=== PATIENT | female | born 1975 | race Caucasian/White ===

== ENCOUNTER → 2020-04-20 | Outpatient (CLI) | payer BC ==
[2020-04-20 15:50] VITALS: BP 149/70; PULSE 112; RESP 16; TEMP 98.1; BMI 40.0
--- NOTE | 2020-04-20 16:27 | P.PN ---
Subjective Progress Note Date: 04/20/20 She comes in with weight gain. She has severe anemia. She has been lost to follow-up in 5 years. She had pain in the left lower quadrant pain. Objective - Vital Signs Vital signs: Vital Signs Temp 98.1 F 04/20/20 15:46 Pulse 112 H 04/20/20 15:46 Resp 16 04/20/20 15:46 BP 149/70 04/20/20 15:46 Pulse Ox Intake & Output 04/19/20 04/20/20 04/20/20 18:59 06:59 18:59 Weight 96.162 kg
--- NOTE | 2020-04-20 16:34 | P.HPBAR ---
Bariatric H&P - History & Physicial H&P Date: 04/20/20 History & Physicial: Visit/CC: f/u Patient initial contact: Initial weight: 112.491 kg Initial weight in pounds: 248.00 Height: 5 ft 1 in Initial BMI: 46.8 Last weight: Current weight: 96.162 kg Current weight in pounds: 212.00 Current BMI: 40.0 [place] body weight (based on NIH guidelines): 47.627 kg Excess body weight loss: 25.1% The patient is a 45 year-old F who presents for Bariatric Assessment. She has ulcers and abdominal pain. She currently smokes, 10 cig a day. Recommend nicotine. Recommend EGD. Correction of labs. Hgb is low. EGD and lower scope for anemia. She has family history of diverticulosis. May need lysis of adhesions. Past Medical History Past Medical History: Hyperlipidemia Additional Past Medical History / Comment(s): Back pain, ULCERS, KIDNEY STONE, ARTHRITIS History of Any Multi-Drug Resistant Organisms: None Reported Past Surgical History: Bariatric Surgery, Cholecystectomy, Tonsillectomy Additional Past Surgical History / Comment(s): Lap band in 2008, gastric bypass 10/15/10, EGD Past Anesthesia/Blood Transfusion Reactions: No Reported Reaction Past Psychological History: Depression Additional Psychological History / Comment(s): Years ago Smoking Status: Current every day smoker Past Alcohol Use History: None Reported Additional Past Alcohol Use History / Comment(s): STARTED SMOKING - ,QUIT 2008. 1 CARTON WOULD LAST A MONTH Past Drug Use History: None Reported - Past Family History Father Family Medical History: Dementia, Rheumatoid Arthritis (RA) Mother Family Medical History: Rheumatoid Arthritis (RA) Surgical - Exam Vital Signs Temp Pulse Resp BP 98.1 F 112 H 16 149/70 04/20/20 15:46 04/20/20 15:46 04/20/20 15:46 04/20/20 15:46 Bariatric Checklist Checklist: Plan: Checklist: EGD: 1. Hiatal hernia: 2. H. Pylori: HgbA1c: Vitamin D: Smoking: Former smoker Primary care physician referral: Psychiatry clearance: Cardiology clearance: Sleep study: Diet journal: VTE risk score: VTE risk level: Rehab needs at discharge:
== END | disposition home or self-care (01) ==
LOC: BARWHC3 15:16
PROVIDERS: ATTEND Surgery Plastic and Reconstructive Surgery
DX: E66.01 Morbid (severe) obesity due to excess calories (principal); Z68.41 Body mass index [BMI] 40.0-44.9, adult; F17.210 Nicotine dependence, cigarettes, uncomplicated; E78.5 Hyperlipidemia, unspecified; Z46.51 Encounter for fitting and adjustment of gastric lap band; Z98.84 Bariatric surgery status
CPT/HCPCS: 99211

== ENCOUNTER → 2020-08-29 | Outpatient (CLI) | payer BC ==
[2020-08-29 17:19] LABS: INR 0.9 (<1.2); Prothrombin Time 10.2 sec (9.0-12.0)
[2020-08-29 23:10] LABS: HCT 25.9 % (37.2-46.3); HGB 6.6 g/dL (12.0-15.0); MCH 17.3 pg (27.0-32.0); MCHC 25.5 g/dL (32.0-37.0); Platelet Count 303 X 10*3/uL (140-440); RBC 3.81 X 10*6/uL (4.10-5.20); RDW 20.7 % (11.5-14.5); WBC 9.65 X 10*3/uL (4.50-10.00)
[2020-08-30 02:08] LABS: % Iron Saturation 3.98 (12.00-45.00); African American GFR (CKD) 119.6 (60.0-200.0); Albumin 4.7 g/dL (3.80-4.90); Albumin/Globulin Ratio 1.81 (1.60-3.17); Anion Gap 11.4 mmol/L (4.00-12.00); BUN/Creat Ratio 18.57 Ratio (12.00-20.00); Calcium 9.5 mg/dL (8.7-10.3); Carbon Dioxide 25.6 mmol/L (21.6-31.8); Chol/HDL Ratio 3.39; Globulin 2.6 g/dL (1.6-3.3); LDL Cholesterol,Calculated 92.8 mg/dL (0.0-131.0); Magnesium 1.8 mg/dL (1.5-2.4); Non-African American GFR(CKD) 103.2 (60.0-200.0); Phosphorus 3.5 mg/dL (2.4-5.1); Potassium 3.1 mmol/L (3.5-5.5); Total Bilirubin 0.3 mg/dL (0.3-1.2); Total Protein 7.3 g/dL (6.2-8.2); VLDL Calculation 24.2 mg/dL (5.00-40.00)
[2020-08-30 02:13] LABS: Hemoglobin A1C 4.9 % (4.0-6.0)
[2020-08-30 02:43] LABS: Ferritin 1.6 ng/mL (10.0-291.0); Folate, Serum 11.7 ng/mL
[2020-08-31 07:03] LABS: Vit B1(Thiamine) >160 ug/L (38-122)
[2020-08-31 08:15] LABS: Zinc, Serum 57 ug/dL (60-130)
[2020-09-01 02:34] LABS: Selenium 95 mcg/L (63-160)
== END | disposition home or self-care (01) ==
LOC: LABWHC1 15:56
PROVIDERS: ATTEND Surgery Plastic and Reconstructive Surgery
DX: N19 Unspecified kidney failure (principal); E89.1 Postprocedural hypoinsulinemia; E66.01 Morbid (severe) obesity due to excess calories; E55.9 Vitamin D deficiency, unspecified; D50.8 Other iron deficiency anemias; K90.89 Other intestinal malabsorption; K74.1 Hepatic sclerosis; K50.90 Crohn's disease, unspecified, without complications; I49.1 Atrial premature depolarization; R94.31 Abnormal electrocardiogram [ECG] [EKG]
CPT/HCPCS: 36415; 80053; 80061; 82306; 82525; 82607; 82728; 82746; 83036; 83540; 83550; 83735; 83970; 84100; 84134; 84255; 84425; 84443; 84590; 84630; 85027; 85610; 85730; 93005

== ENCOUNTER → 2020-10-10 | Day surgery (SDC) | payer BC ==
[2020-10-05 16:15] VITALS: BMI 31.1
[~2020-10-10] MED LIST: LACTATED RINGERS 1,000 ML IV ONE; LACTATED RINGERS 1,000 ML IV SCH; PROPOFOL 10 MG/ML 20 ML VIAL IV ONE
--- NOTE | 2020-10-10 03:21 | P.GSHP ---
History of Present Illness H&P Date: 10/10/20 CHIEF COMPLAINT: GERD and colon screen HISTORY OF PRESENT ILLNESS: The patient is a 45-year-old female who presents with gastroesophageal reflux disease and need for colon screen. Upper and lower endoscopy were offered for further evaluation and management. PAST MEDICAL HISTORY: Please see list. PAST SURGICAL HISTORY: Please see list. MEDICATIONS: Please see list. ALLERGIES: Please see list. SOCIAL HISTORY: No illicit drug use FAMILY HISTORY: No reports of Crohn disease or ulcerative colitis. REVIEW OF ORGAN SYSTEMS: CONSTITUTIONAL: No reports of fevers or chills. CARDIO: Denies current chest pain or palpitations. PHYSICAL EXAM: VITAL SIGNS: Stable GENERAL: Well-developed pleasant in no acute distress. HEENT: No scleral icterus. Extraocular movements grossly intact. Moist buccal mucosa. NECK: Supple without lymphadenopathy. CHEST: Unlabored respirations. Equal bilateral excursions. CARDIOVASCULAR: Regular rate and rhythm. Distal 2+ pulses. ABDOMEN: Soft, nondistended. MUSCULOSKELETAL: No clubbing, cyanosis, or edema. ASSESSMENT: 1. Gastroesophageal reflux disease 2. Colon screen. PLAN: 1. Recommend proceeding with an upper and lower endoscopy Past Medical History Past Medical History: Hyperlipidemia Additional Past Medical History / Comment(s): Back pain, ULCERS, KIDNEY STONE, ARTHRITIS History of Any Multi-Drug Resistant Organisms: None Reported Past Surgical History: Bariatric Surgery, Cholecystectomy, Tonsillectomy Additional Past Surgical History / Comment(s): Lap band in 2008, gastric bypass 10/15/10, EGD Past Anesthesia/Blood Transfusion Reactions: No Reported Reaction Smoking Status: Current every day smoker - Past Family History Father Family Medical History: Dementia, Rheumatoid Arthritis (RA) Mother Family Medical History: Rheumatoid Arthritis (RA) Medications and Allergies Home Medications Medication Instructions Recorded Confirmed Type No Known Home Medications 04/20/20 10/05/20 History Allergies Allergy/AdvReac Type Severity Reaction Status Date / Time pregabalin [From Lyrica] Allergy Rash/Hives Verified 10/05/20 16:08
[2020-10-10 08:07] VITALS: TEMP 97.8
--- NOTE | 2020-10-10 08:42 | P.HPADDEND ---
H&P Addendum H&P Addendum Date: 10/10/20 Patient has been lost to follow-up. She reports new worsening epigastric abdominal pain. Additionally she reports new left lower quadrant abdominal pain. No reports of blood in stools. With these findings, will proceed with both upper and lower endoscopy. The patient is elevated risk for complications due to pre-existing gastric bypass
--- NOTE | 2020-10-10 08:48 | P.PCN ---
Date of Procedure: 10/10/20 Description of Procedure: PREOPERATIVE DIAGNOSES: 1. Gastroesophageal reflux disease 2. Epigastric abdominal pain. POSTOPERATIVE DIAGNOSES: 1. Gastroesophageal reflux disease 2. 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 SURGEON: Rosaura Montana MD ANESTHESIA: MAC. INDICATIONS: The patient is a 45-year-old female with prior history of [place]-en-Y gastric bypass. She reports gastroesophageal reflux disease including epigastric abdominal pain. Upper endoscopy was performed for diagnostic and therapeutic management. DESCRIPTION: Patient was brought to the endoscopy suite and laid in the left lateral decubitus position. After adequate IV sedation, a bite block was placed. An Olympus gastroscope was passed along the posterior oropharynx down to the distal esophagus where the squamocolumnar junction was found at approximately 35 cm from the incisors. The anastomosis was found at 42 cm, consistent with approximately 7 cm gastric pouch. The scope was advanced 60 cm from the incisors. No evidence of foreign body was found. Active gastrojejunal ulcerations were encountered. The GI tract was desufflated. The patient tolerated the procedure well. FINDINGS: 1. Chronic chronic gastrojejunal ulceration. 2. No foreign body found along the anastomosis. 3. Squamocolumnar junction was found at approximately 35 cm from the incisors. 4. The anastomosis was found at 42 cm, consistent with approximately 7 cm gastric pouch. PLAN: 1. Recommend upper endoscopy as needed. 2. Omeprazole 40 mg daily and Carafate 1 g twice daily for 4 weeks
[2020-10-10 09:17] VITALS: RESP 16
--- NOTE | 2020-10-10 09:17 | P.PCN ---
Date of Procedure: 10/10/20 Description of Procedure: PREOPERATIVE DIAGNOSIS: Colonoscopy screening. POSTOPERATIVE DIAGNOSIS: Colonoscopy screening. Diverticulosis, scattered. OPERATION: Colonoscopy to the hepatic flexure SURGEON: Rosaura Montana MD. ANESTHESIA: MAC. INDICATIONS: The patient is a 45-year-old female who presents for colonoscopy screening. Benefits and risks were described and informed consent was obtained. DESCRIPTION OF PROCEDURE: The patient had undergone Sutab prep. The patient had been brought into the operating room and laid in the left lateral decubitus position. After adequate intravenous sedation, the rectum was examined with 2% lidocaine jelly. No external hemorrhoids were encountered. The rectal tone was within normal limits. No lesions were palpated in the rectal vault. An Olympus colonoscope was advanced to the sigmoid colon and exchanged for a pediatric colonoscope due to stricture at 40 cm from the anal verge. The pediatric colonoscope was advanced to the hepatic flexure despite abdominal wall pressure and maneuvers. The prep was fair. Scattered diverticulosis was encountered. No colonic polyps were found for the remainder of the colon. No evidence of focal colitis was found. Retroflexion of the scope demonstrated grade 1 internal hemorrhoids without active bleeding or inflammation. The colon was desufflated. The patient had tolerated the procedure well. Withdrawal time was over 6 minutes. FINDINGS: Aronchick preparation quality scale 3 (1-5) Internal hemorrhoids, grade 1 No external prolapsed hemorrhoids. No arteriovenous malformations. No adenomatous polyps. No focal colitis. Colonoscopy to hepatic flexure from redundant sigmoid colon and redundant transverse colon. RECOMMENDATIONS: 1. Recommend completion barium enema 2. Recommend at least 2 days of colonoscopy prep 3. Repeat colonoscopy years, 2025 Plan - Discharge Summary Discharge Rx Participant: No New Discharge Prescriptions: No Action No Known Home Medications Discharge Medication List No Known Home Medications 04/20/20 [History] Follow up Appointment(s)/Referral(s): [place], [place] [NON-STAFF] - 10/12/20 Patient Instructions/Handouts: Diverticulosis Diet (GEN), Diverticulosis (DC), Peptic Ulcer (GEN) Activity/Diet/Wound Care/Special Instructions: Repeat colonoscopy in 5 years2025 Discharge Disposition: HOME SELF-CARE
[2020-10-10 09:34] VITALS: BP 125/77; PULSE 66
== END | disposition home or self-care (01) ==
LOC: ORWHC2ENDO 07:43
PROVIDERS: ATTEND Surgery Plastic and Reconstructive Surgery
DX: Z12.11 Encounter for screening for malignant neoplasm of colon (principal); K28.7 Chronic gastrojejunal ulcer without hemorrhage or perforation; K21.9 Gastro-esophageal reflux disease without esophagitis; E78.5 Hyperlipidemia, unspecified; F17.200 Nicotine dependence, unspecified, uncomplicated; K57.90 Diverticulosis of intestine, part unspecified, without perforation or abscess without bleeding; M19.90 Unspecified osteoarthritis, unspecified site; Z90.49 Acquired absence of other specified parts of digestive tract; Z98.84 Bariatric surgery status; F03.90 Unspecified dementia, unspecified severity, without behavioral disturbance, psychotic disturbance, mood disturbance, and anxiety
CPT/HCPCS: 43235; 81025; G0121; J2704

== ENCOUNTER 2023-03-13 08:25 | Inpatient (IN) | payer BC, OTHER ==
[2023-03-13 09:26] LABS: Partial Thromboplastin Time 24.1 sec (22.0-30.0); Prothrombin Time 11.2 sec (10.0-12.5)
[2023-03-13 09:35] LABS: Anisocytosis Marked; Basophils % (A) 1 %; Eosinophils # (A) 0.1 k/uL (0-0.7); Eosinophils % (A) 2 %; Hypochromasia Marked; Lymphocytes # (A) 1.4 k/uL (1.0-4.8); Lymphocytes % (A) 32 %; MCH 20.3 pg (25.0-35.0); MCHC 26.6 g/dL (31.0-37.0); MCV 76.1 fL (80.0-100.0); Mean Platelet Volume 7.5; Microcytosis Marked; Monocytes # (A) 0.2 k/uL (0-1.0); Monocytes % (A) 4 %; Neutrophils # (A) 2.6 k/uL (1.3-7.7); Neutrophils % (A) 60 %; Platelet Count 351 k/uL (150-450); Poikilocytosis Slight; RBC 1.92 m/uL (3.80-5.40); RDW 24.1 % (11.5-15.5); WBC 4.3 k/uL (3.8-10.6)
[2023-03-13 09:38] LABS: HCT 14.6 % (34.0-46.0); HGB 3.9 gm/dL (11.4-16.0)
[2023-03-13 09:51] LABS: ALT 14 U/L (4-34); AST 24 U/L (14-36); African American GFR (CKD) >90 (>60 ml/min/1.73 sqM); Albumin 4.1 g/dL (3.5-5.0); Alkaline Phosphatase 97 U/L (38-126); Anion Gap 13 mmol/L; Blood Urea Nitrogen 11 mg/dL (7-17); Carbon Dioxide 19 mmol/L (22-30); Chloride 107 mmol/L (98-107); Glucose 95 mg/dL (74-99); Magnesium 2.2 mg/dL (1.6-2.3); Non-African American GFR(CKD) >90 (>60 ml/min/1.73 sqM); Potassium 4.1 mmol/L (3.5-5.1); Sodium 139 mmol/L (137-145); Total Bilirubin 0.4 mg/dL (0.2-1.3); Total Protein 7.4 g/dL (6.3-8.2)
--- NOTE | 2023-03-13 09:53 | ED ---
General Adult HPI - General Chief complaint: Recheck/Abnormal Lab/Rx Stated complaint: ABN LABS Time Seen by Provider: 03/13/23 09:02 Source: patient, RN notes reviewed Mode of arrival: ambulatory Limitations: no limitations - History of Present Illness Initial comments: 48-year-old female presents emergency department chief complaint of anemia. Patient states that she was going for routine blood work for her arthritis from her PCP who called and told her hemoglobin was in the 3.2 range. Patient states that she has felt short of breath, tired feeling she denies any melanotic stools denies any abdominal pain. Patient states she does not do much cycle. She has had some abnormal bleeding from reports of patient and Dr. Okeefe. - Related Data Home Medications Medication Instructions Recorded Confirmed Bumetanide [Bumex] 1 mg PO DAILY 03/13/23 03/13/23 HYDROcodone/APAP 7.5-325MG [[place] 1 tab PO Q6HR PRN 03/13/23 03/13/23 7.5-325] Meloxicam [Mobic] 15 mg PO DAILY 03/13/23 03/13/23 Potassium Chloride ER [K-Dur 10] 10 meq PO DAILY 03/13/23 03/13/23 Previous Rx's Medication Instructions Recorded Omeprazole [PriLOSEC] 40 mg PO DAILY #30 cap 10/10/20 Allergies Allergy/AdvReac Type Severity Reaction Status Date / Time No Known Allergies Allergy Verified 03/13/23 11:04 Review of Systems ROS Statement: Those systems with pertinent positive or pertinent negative responses have been documented in the HPI. ROS Other: All systems not noted in ROS Statement are negative. Past Medical History Past Medical History: Hyperlipidemia Additional Past Medical History / Comment(s): Back pain, ULCERS, KIDNEY STONE, ARTHRITIS History of Any Multi-Drug Resistant Organisms: None Reported Past Surgical History: Bariatric Surgery, Cholecystectomy, Tonsillectomy Additional Past Surgical History / Comment(s): Lap band in 2008, gastric bypass 10/15/10, EGD Past Anesthesia/Blood Transfusion Reactions: No Reported Reaction Past Psychological History: Depression Smoking Status: Current every day smoker Past Alcohol Use History: None Reported Past Drug Use History: None Reported - Past Family History Father Family Medical History: Dementia, Rheumatoid Arthritis (RA) Mother Family Medical History: Rheumatoid Arthritis (RA) General Exam Limitations: no limitations General appearance: alert, in no apparent distress, other (pale) Head exam: Present: atraumatic, normocephalic, normal inspection Eye exam: Present: PERRL, EOMI. Absent: normal appearance (pale), scleral icterus, conjunctival injection, periorbital swelling ENT exam: Present: normal exam, mucous membranes moist Neck exam: Present: normal inspection. Absent: tenderness, meningismus, lymphadenopathy Respiratory exam: Present: normal lung sounds bilaterally. Absent: respiratory distress, wheezes, rales, rhonchi, stridor Cardiovascular Exam: Present: regular rate, normal rhythm, normal heart sounds. Absent: systolic murmur, diastolic murmur, rubs, gallop, clicks GI/Abdominal exam: Present: soft, normal bowel sounds. Absent: distended, tenderness, guarding, rebound, rigid Skin exam: Present: warm, dry, intact. Absent: normal color (pale), rash Course Vital Signs 03/13/23 08:37 Temperature 97.9 F Pulse Rate 97 Respiratory 16 Rate Blood Pressure 152/68 O2 Sat by Pulse 100 Oximetry Procedures - [place] Protocol (Time Out) Nurse: MARKO GALICIA Medical Decision Making - Medical Decision Making Was pt. sent in by a medical professional or institution (, PA, EVENT MARKETING ASSISTANT, urgent care, hospital, or fpc...) When possible be specific @ -PCP Did you speak to anyone other than the patient for history (EMS, parent, family, police, friend...)? What history was obtained from this source @ -No Did you review nursing and triage notes (agree or disagree)? Why? @ -I reviewed and agree with nursing and triage notes Were old charts reviewed (outside hosp., previous admission, EMS record, old EKG, old radiological studies, urgent care reports/EKG's, fpc records)? Report findings @ -No old charts were reviewed Differential Diagnosis (chest pain, altered mental status, abdominal pain women, abdominal pain men, vaginal bleeding, weakness, fever, dyspnea, syncope, headache, dizziness, GI bleed, back pain, seizure, CVA, palpatations, mental health, musculoskeletal)? @ -[Anemia, dysfunctional vaginal bleeding, peptic ulcer disease, gastrointestinal bleeding EKG interpreted by me (3pts min.). @ -None X-rays interpreted by me (1pt min.). @ -None done CT interpreted by me (1pt min.). @ -None done U/S interpreted by me (1pt. min.). @ -Ultrasound is pending upon admission What testing was considered but not performed or refused? (CT, X-rays, U/S, labs)? Why? @ -None What meds were considered but not given or refused? Why? @ -None Did you discuss the management of the patient with other professionals (professionals i.e. , PA, EVENT MARKETING ASSISTANT, lab, RT, psych nurse, director social welfare, welfare eligibility interviewer, teacher, ground nuclear weapons assembly officer, manager rn case)? Give summary @ -Dr. Okeefe for admission with recommendations to perform ultrasound and consult VICE CHAIRMAN. Was smoking cessation discussed for >3mins.? @ -No Was critical care preformed (if so, how long)? @ -35 mins Were there social determinants of health that impacted care today? How? (Homelessness, low income, unemployed, alcoholism, drug addiction, transportation, low edu. Level, literacy, decrease access to med. care, half-way, rehab)? @ -No Was there de-escalation of care discussed even if they declined (Discuss DNR or withdrawal of care, Hospice)? DNR status @ -No What co-morbidities impacted this encounter? (DM, HTN, Smoking, COPD, CAD, Can cer, CVA, ARF, Chemo, Hep., AIDS, mental health diagnosis, sleep apnea, morbid obesity)? @ -None Was patient admitted / discharged? Hospital course, mention meds given and route, prescriptions, significant lab abnormalities, going to OR and other pertinent info. @ -Admitted patient is found to have anemia with hemoglobin 3.9. Patient was ordered 2 units of blood. Patient will be admitted will have ultrasound ordered, consult to VICE CHAIRMAN. She denies any rectal bleeding. Patient be closely monitored Undiagnosed new problem with uncertain prognosis? @ -No Drug Therapy requiring intensive monitoring for toxicity (Heparin, Nitro, Insulin, Cardizem)? @ -No Were any procedures done? @ -No Diagnosis/symptom? @ -[Anemia Acute, or Chronic, or Acute on Chronic? @ -Acute Uncomplicated (without systemic symptoms) or Complicated (systemic symptoms)? @ -Uncomplicated Side effects of treatment? @ -[No Exacerbation, Progression, or Severe Exacerbation? @ -No Poses a threat to life or bodily function? How? (Chest pain, [place], VA, pneumonia, PE, COPD, DKA, ARF, appy, cholecystitis, CVA, Diverticulitis, Homicidal, Suicidal, threat to staff... and all critical care pts) @ -[Yes anemic - Lab Data Result diagrams: 03/13/23 08:43 03/13/23 08:43 Lab Results 03/13/23 03/13/23 03/13/23 Range/Units 08:43 08:43 08:57 WBC 4.3 (3.8-10.6) k/uL RBC 1.92 L (3.80-5.40) m/uL Hgb 3.9 L* (11.4-16.0) gm/dL Hct 14.6 L* (34.0-46.0) % MCV 76.1 L (80.0-100.0) fL MCH 20.3 L (25.0-35.0) pg MCHC 26.6 L (31.0-37.0) g/dL RDW 24.1 H (11.5-15.5) % Plt Count 351 (150-450) k/uL MPV 7.5 Neutrophils % 60 % Lymphocytes % 32 % Monocytes % 4 % Eosinophils % 2 % Basophils % 1 % Neutrophils # 2.6 (1.3-7.7) k/uL Lymphocytes # 1.4 (1.0-4.8) k/uL Monocytes # 0.2 (0-1.0) k/uL Eosinophils # 0.1 (0-0.7) k/uL Basophils # 0.0 (0-0.2) k/uL Hypochromasia Marked Poikilocytosis Slight Anisocytosis Marked Microcytosis Marked PT 11.2 (10.0-12.5) sec INR 1.0 (<1.2) APTT 24.1 (22.0-30.0) sec Sodium 139 (137-145) mmol/L Potassium 4.1 (3.5-5.1) mmol/L Chloride 107 (98-107) mmol/L Carbon Dioxide 19 L (22-30) mmol/L Anion Gap 13 mmol/L BUN 11 (7-17) mg/dL Creatinine 0.60 (0.52-1.04) mg/dL Est GFR (CKD-EPI)AfAm >90 (>60 ml/min/1.73 sqM) Est GFR (CKD-EPI)NonAf >90 (>60 ml/min/1.73 sqM) Glucose 95 (74-99) mg/dL Calcium 9.0 (8.4-10.2) mg/dL Magnesium 2.2 (1.6-2.3) mg/dL Total Bilirubin 0.4 (0.2-1.3) mg/dL AST 24 (14-36) U/L ALT 14 (4-34) U/L Alkaline Phosphatase 97 (38-126) U/L Total Protein 7.4 (6.3-8.2) g/dL Albumin 4.1 (3.5-5.0) g/dL Blood Type Blood Type Recheck Bld Type Recheck Status Antibody Screen Crossmatch Spec Expiration Date 03/13/23 Range/Units 08:57 WBC (3.8-10.6) k/uL RBC (3.80-5.40) m/uL Hgb (11.4-16.0) gm/dL Hct (34.0-46.0) % MCV (80.0-100.0) fL MCH (25.0-35.0) pg MCHC (31.0-37.0) g/dL RDW (11.5-15.5) % Plt Count (150-450) k/uL MPV Neutrophils % % Lymphocytes % % Monocytes % % Eosinophils % % Basophils % % Neutrophils # (1.3-7.7) k/uL Lymphocytes # (1.0-4.8) k/uL Monocytes # (0-1.0) k/uL Eosinophils # (0-0.7) k/uL Basophils # (0-0.2) k/uL Hypochromasia Poikilocytosis Anisocytosis Microcytosis PT (10.0-12.5) sec INR (<1.2) APTT (22.0-30.0) sec Sodium (137-145) mmol/L Potassium (3.5-5.1) mmol/L Chloride (98-107) mmol/L Carbon Dioxide (22-30) mmol/L Anion Gap mmol/L BUN (7-17) mg/dL Creatinine (0.52-1.04) mg/dL Est GFR (CKD-EPI)AfAm (>60 ml/min/1.73 sqM) Est GFR (CKD-EPI)NonAf (>60 ml/min/1.73 sqM) Glucose (74-99) mg/dL Calcium (8.4-10.2) mg/dL Magnesium (1.6-2.3) mg/dL Total Bilirubin (0.2-1.3) mg/dL AST (14-36) U/L ALT (4-34) U/L Alkaline Phosphatase (38-126) U/L Total Protein (6.3-8.2) g/dL Albumin (3.5-5.0) g/dL Blood Type A Positive Blood Type Recheck A Pos Bld Type Recheck Status No Antibody Screen NEGATIVE Crossmatch See Detail Spec Expiration Date 03/16/20232356 Disposition Clinical Impression: Anemia Disposition: ADMITTED IP TO THIS [facility] Condition: Fair Referrals: Ziggy Okeefe MD [Primary Care Provider] - 1-2 days Time of Disposition: 10:28
[2023-03-13] MEDS ORDERED: NALOXONE 0.4 MG/ML 1 ML VIAL IV PRN (10:29)
[2023-03-13] MEDS ORDERED: ACETAMINOPHEN TAB 325 MG TAB PO PRN (10:29)
[2023-03-13] MEDS: PANTOPRAZOLE 40 MG/10 ML VIAL IV SCH (11:34)
--- NOTE | 2023-03-13 11:51 | US ---
EXAMINATION TYPE: US transvaginal DATE OF EXAM: 03/13/2023 COMPARISON: CT 2014 CLINICAL INDICATION: Female, 48 years old with history of bleeding, anemia; Hgb 3.9 TECHNIQUE: Transvaginal (TV. Transvaginal sonographic images were medically necessary to better ass ess the following anatomy: Date of LMP: 03/02/23 EXAM MEASUREMENTS: Uterus: 8.4 x 6.4 x 6.3 cm Endometrial Stripe: 0.63 cm Left Ovary: 2.2 x 1.4 x 2.0 cm 1. Uterus: Anteverted but retroflexed; Multiple fibroids - 1). 4.0 x 4.1 x 3.4 cm (right uterus) 2). 2.2 x 2.1 x 2.0 cm (Fundus) 3). 2.4 x 2.4 x 2.0 cm (Left) 4). 2.2 x 1.5 x 2.2 cm (Left) 2. Endometrium: Somewhat distorted contour due to fibroids 3. Right Ovary: Not visualized due to overlying bowel gas 4. Left Ovary: Wnl Spectral, color and waveform doppler imaging shows good arterial and venous flow within the left ov glen; there is no evidence of torsion. 5. Bilateral Adnexa: wnl 6. Posterior cul-de-sac: Small amount of cul-de-sac free fluid may be physiologic. IMPRESSION: 1. Bulky fibroid uterus. Fibroids measure up to 4.1 cm. The endometrial stripe has a distorted contou r likely from mass effect from the multiple fibroids. Submucosal components of the fibroids are diffi cult to exclude. If further evaluation with fibroid mapping is desired, female pelvic MRI can be cons idered. 2. Unable to visualize the right ovary. 3. Small amount of cul-de-sac free fluid likely physiologic. 4. Endometrial stripe thickness at 6.3 mm. This would be mildly thickened for a postmenopausal female with bleeding and further clinical correlation is recommended.
[2023-03-13] MEDS: HYDROcodone/APAP 7.5-325MG 1 EACH TAB PO PRN (21:18)
[2023-03-14] MEDS: HYDROcodone/APAP 7.5-325MG 1 EACH TAB PO PRN ×3 (05:06→20:34)
[2023-03-14] MEDS: MELOXICAM 7.5 MG TAB PO SCH (07:22)
[2023-03-14] MEDS: POTASSIUM CHLORIDE ER 10 MEQ TAB.ER.PRT PO SCH (08:46)
[2023-03-14] MEDS: BUMETANIDE 1 MG TAB PO SCH (08:47)
[2023-03-14] MEDS: PANTOPRAZOLE 40 MG/10 ML VIAL IV SCH (08:47)
--- NOTE | 2023-03-14 08:47 | P.HPIM ---
History of Present Illness H&P Date: 03/14/23 Chief Complaint: anemia This is a 48-year-old female who was sent to the emergency room from our office after a critical hemoglobin of 3.3. Patient does report some fatigue and shortness of breath but denies any abdominal pain or blood in her stool. She does report a history of some abnormal vaginal bleeding. Transvaginal ultrasound showed a bulky fibroid uterus with fibroids measuring up to 4.1 cm. Gynecology has been consulted. She is seen this morning walking about room. She did receive packed red blood cells yesterday and repeat hemoglobin for this morning is pending at time of dictation. Patient does have a history of gastric bypass. Review of Systems Constitutional: Reports fatigue, Denies chills, Denies fever Cardiovascular: Reports dyspnea on exertion, Denies chest pain Respiratory: Reports dyspnea, Denies cough Gastrointestinal: Reports abdominal pain, Denies nausea, Denies vomiting Genitourinary: Reports menorrhagia Musculoskeletal: Denies arm numbness/tingling, Denies leg numbness/tingling Neurological: Reports weakness, Denies headaches Past Medical History Past Medical History: Hyperlipidemia Additional Past Medical History / Comment(s): Back pain, ULCERS, KIDNEY STONE, ARTHRITIS History of Any Multi-Drug Resistant Organisms: None Reported Past Surgical History: Bariatric Surgery, Cholecystectomy, Tonsillectomy Additional Past Surgical History / Comment(s): Lap band in 2008, gastric bypass 10/15/10, EGD Past Anesthesia/Blood Transfusion Reactions: No Reported Reaction Past Psychological History: Depression Additional Psychological History / Comment(s): Years ago Smoking Status: Current some day smoker Past Alcohol Use History: None Reported Additional Past Alcohol Use History / Comment(s): STARTED SMOKING -15 ,QUIT 2008. 1 CARTON WOULD LAST A MONTH Past Drug Use History: None Reported - Past Family History Father Family Medical History: Dementia, Rheumatoid Arthritis (RA) Mother Family Medical History: Rheumatoid Arthritis (RA) Medications and Allergies Home Medications Medication Instructions Recorded Confirmed Type Omeprazole [PriLOSEC] 40 mg PO DAILY #30 cap 10/10/20 03/13/23 Rx Bumetanide [Bumex] 1 mg PO DAILY 03/13/23 03/13/23 History HYDROcodone/APAP 7.5-325MG [[place] 1 tab PO Q6HR PRN 03/13/23 03/13/23 History 7.5-325] Meloxicam [Mobic] 15 mg PO DAILY 03/13/23 03/13/23 History Potassium Chloride ER [K-Dur 10] 10 meq PO DAILY 03/13/23 03/13/23 History Allergies Allergy/AdvReac Type Severity Reaction Status Date / Time No Known Allergies Allergy Verified 03/13/23 11:04 Physical Exam Vitals: Vital Signs Temp Pulse Pulse Resp BP BP Pulse Ox 03/14/23 04:36 60 17 169/84 100 03/14/23 01:08 98.1 F 69 18 166/83 100 03/14/23 00:41 63 18 130/69 98 03/13/23 22:33 70 18 134/71 99 03/13/23 20:35 70 18 146/72 100 03/13/23 17:49 64 18 136/76 100 03/13/23 16:46 97.9 F 67 16 136/72 100 03/13/23 14:49 98.1 F 61 16 138/76 100 03/13/23 14:29 98.1 F 65 16 137/73 100 03/13/23 14:13 98.7 F 75 18 132/62 100 03/13/23 12:46 98.5 F 80 18 132/78 100 03/13/23 12:26 97.9 F 85 18 130/79 100 03/13/23 12:00 98.1 F 85 18 135/71 100 Intake and Output 03/13/23 03/14/23 03/14/23 22:59 06:59 14:59 Intake Total 310 540 Balance 310 540 Intake: Oral 540 Blood Product 310 Rc As-1 Unit 310 [id number] Other: Voiding Method Toilet Weight 64.9 kg - Constitutional General appearance: cooperative, no acute distress - EENT Eyes: PERRLA - Neck Neck: no lymphadenopathy, normal ROM, no rigidity - Respiratory Respiratory: bilateral: diminished - Cardiovascular Rhythm: regular Heart sounds: normal: S1, S2 - Gastrointestinal General gastrointestinal: soft, no tenderness - Integumentary Integumentary: pale - Psychiatric Psychiatric: A&O x's 3, appropriate affect, intact judgment & insight Results CBC & Chem 7: 03/13/23 08:43 03/13/23 08:43 Labs: Abnormal Lab Results - Last 24 Hours (Table) 03/13/23 03/13/23 03/13/23 Range/Units 08:43 08:43 08:57 RBC 1.92 L (3.80-5.40) m/uL Hgb 3.9 L* (11.4-16.0) gm/dL Hct 14.6 L* (34.0-46.0) % MCV 76.1 L (80.0-100.0) fL MCH 20.3 L (25.0-35.0) pg MCHC 26.6 L (31.0-37.0) g/dL RDW 24.1 H (11.5-15.5) % Carbon Dioxide 19 L (22-30) mmol/L Crossmatch See Detail Thrombosis Risk Factor Assmnt - Choose All That Apply Any of the Below Risk Factors Present?: Yes Each Factor Represents 1 point: Age 41-60 years, Obesity (BMI >25) Thrombosis Risk Factor Assessment Total Risk Factor Score: 2 Thrombosis Risk Factor Assessment Level: Low Risk Assessment and Plan (1) Uterine fibroid Current Visit: Yes Status: Acute Code(s): D25.9 - LEIOMYOMA OF UTERUS, UNSPECIFIED SNOMED Code(s): 87356131 (2) Anemia Current Visit: Yes Status: Acute Code(s): D64.9 - ANEMIA, UNSPECIFIED SNOMED Code(s): 855051149 (3) History of bariatric surgery Current Visit: No Status: Acute Code(s): Z98.84 - BARIATRIC SURGERY STATUS SNOMED Code(s): 275236616 (4) Current smoker Current Visit: Yes Status: Acute Code(s): F17.200 - NICOTINE DEPENDENCE, UNSPECIFIED, UNCOMPLICATED SNOMED Code(s): 58641276 Plan: May continue home medications. Will order nicotine patch. Await recommendations from gynecology Patient seen and evaluated by nurse practitioner, physician in agreement with plan
[2023-03-14] MEDS: NICOTINE 21MG/24HR PATCH TRANSDERM SCH (08:51)
[2023-03-14 10:10] LABS: Anisocytosis Moderate; Basophils % (A) 1 %; Eosinophils % (A) 1 %; Hypochromasia Marked; Lymphocytes % (A) 26 %; MCH 24.2 pg (25.0-35.0); MCHC 30.1 g/dL (31.0-37.0); MCV 80.3 fL (80.0-100.0); Microcytosis Moderate; Monocytes # (A) 0.2 k/uL (0-1.0); Monocytes % (A) 5 %; Neutrophils # (A) 2.5 k/uL (1.3-7.7); Neutrophils % (A) 67 %; Platelet Count 286 k/uL (150-450); Poikilocytosis Marked; RBC 2.63 m/uL (3.80-5.40); RDW 21.4 % (11.5-15.5); WBC 3.8 k/uL (3.8-10.6)
[2023-03-14 10:13] LABS: HCT 21.1 % (34.0-46.0); HGB 6.4 gm/dL (11.4-16.0)
[2023-03-14 13:35] VITALS: BMI 27.0
[2023-03-14 20:22] LABS: Anisocytosis Moderate; HCT 27.3 % (34.0-46.0); Hypochromasia Marked; MCH 25.5 pg (25.0-35.0); MCHC 31.2 g/dL (31.0-37.0); MCV 81.8 fL (80.0-100.0); Mean Platelet Volume 9.9; Microcytosis Slight; Platelet Count 286 k/uL (150-450); Poikilocytosis Marked; RBC 3.33 m/uL (3.80-5.40); RDW 20.7 % (11.5-15.5); WBC 4.5 k/uL (3.8-10.6)
[2023-03-14 20:27] LABS: HGB 8.5 gm/dL (11.4-16.0)
--- NOTE | 2023-03-14 21:02 | P.OBCN ---
History of Present Illness Consult date: 03/14/23 Requesting physician: Ziggy Okeefe Reason for consult: other (Abnormal vaginal bleeding/anemia) Chief complaint: Severe anemia History of present illness: This is a 48-year-old female 2 para 0, history of 2 miscarriages, who was seen at her primary care physician's office with her for routine visit. Since he was getting lab work she asked if she could have lab work drawn because she felt that she had joint aches. Her physician did draw blood work but called her back later after they found her hemoglobin to be 3.9. They advised her to go right to the hospital. Patient states that she has been anemic ever since she underwent a gastric bypass in approximately 2010. She s tates she has had a blood transfusion in the past. She has also had iron transfusions. She states this was about 7 to 8 years ago. It sounds like she lost insurance for a while and was not seeing a doctor regularly until recently. She does follow with Dr. [place] who did her gastric bypass and did tell her that she may not be absorbing iron well due to this. As far as her periods go, she states that she is having monthly regular periods and she has ever since she was about 8 years old. Her periods last anywhere from 3 to 7 days usually but sometimes can last up to 9 days. She states that they are normal in flow and sometimes light. She may occasionally have 1 or 2 heavier days but no clots. Her last menstrual period ended on Saturday. She stated that it lasted about 7 days. Since that time since she has been hospitalized, she does states she has some occasional spotting that is very light. She denies any abdominal or pelvic pain. She states her periods have always been this way her whole life. She never had any issues with anemia until she had a gastric bypass surgery. Her last Pap smear was about 6 to 7 years ago and was within normal limits per patient. She does have a daughter in the room with her. She states this daughter is adopted but her daughter does not know that she is adopted and she would like to keep this confidential around her daughter. Pelvic ultrasound was performed during this admission that showed uterus measuring 8.4 x 6.4 x 6.3 cm with an endometrial stripe thickness of 0.63 cm. There are multiple fibroids noted, the largest of which was about 4 cm on the right side of her uterus. Endometrial contour was somewhat distorted due to the fibroids. The right ovary was not visualized due to overlying bowel gas but the left ovary appeared within normal limits. Patient has just completed her third unit of packed red blood cells. She states she does feel much better although she was not feeling that bad when she arrived to the hospital. Review of Systems Constitutional: Reports fatigue Cardiovascular: Denies lightheadedness, Denies shortness of breath Respiratory: Denies cough Gastrointestinal: Denies abdominal pain Genitourinary: Denies pelvic pain, Denies Menstruation: Reports menses 1-7 days, Reports period normal Past Medical History Past Medical History: Hyperlipidemia Additional Past Medical History / Comment(s): Back pain, ULCERS, KIDNEY STONE, ARTHRITIS History of Any Multi-Drug Resistant Organisms: None Reported Past Surgical History: Bariatric Surgery, Cholecystectomy, Tonsillectomy Additional Past Surgical History / Comment(s): Lap band in 2008, gastric bypass 10/15/10, EGD Past Anesthesia/Blood Transfusion Reactions: No Reported Reaction Past Psychological History: Depression Additional Psychological History / Comment(s): Years ago Smoking Status: Current some day smoker Past Alcohol Use History: None Reported Additional Past Alcohol Use History / Comment(s): STARTED SMOKING - ,QUIT 2008. 1 CARTON WOULD LAST A MONTH. She states she is currently still smoking but 1 carton will last about a month to month and a half. Past Drug Use History: None Reported - Past Family History Father Family Medical History: Dementia, Rheumatoid Arthritis (RA) Mother Family Medical History: Rheumatoid Arthritis (RA) Medications and Allergies Home Medications Medication Instructions Recorded Confirmed Type Omeprazole [PriLOSEC] 40 mg PO DAILY #30 cap 10/10/20 03/13/23 Rx Bumetanide [Bumex] 1 mg PO DAILY 03/13/23 03/13/23 History HYDROcodone/APAP 7.5-325MG [[place] 1 tab PO Q6HR PRN 03/13/23 03/13/23 History 7.5-325] Meloxicam [Mobic] 15 mg PO DAILY 03/13/23 03/13/23 History Potassium Chloride ER [K-Dur 10] 10 meq PO DAILY 03/13/23 03/13/23 History Allergies Allergy/AdvReac Type Severity Reaction Status Date / Time No Known Allergies Allergy Verified 03/13/23 11:04 Exam Osteopathic Statement: *. No significant issues noted on an osteopathic structural exam other than those noted in the History and Physical/Consult. Vital Signs Temp Pulse Pulse Resp BP BP Pulse Ox 03/14/23 20:33 64 18 161/85 99 03/14/23 15:48 98.4 F 64 15 157/84 99 03/14/23 12:49 98.1 F 59 L 18 149/73 100 03/14/23 12:29 97.8 F 70 18 151/75 03/14/23 12:20 98.4 F 65 16 151/83 100 03/14/23 08:00 98.2 F 60 18 153/83 100 03/14/23 04:36 60 17 169/84 100 03/14/23 01:08 98.1 F 69 18 166/83 100 03/14/23 00:41 63 18 130/69 98 03/13/23 22:33 70 18 134/71 99 Intake and Output 03/14/23 03/14/23 03/14/23 06:59 14:59 22:59 Intake Total 540 0 310 Balance 540 0 310 Intake: Oral 540 0 0 Blood Product 0 310 Rc As-1 Unit 0 310 [id number] Other: Voiding Method Toilet Toilet # Voids 4 4 Weight 64.9 kg 64.9 kg General: Pleasant, well-developed well-nourished female in no acute distress, talking comfortably. HEENT: Poor dentition with missing teeth Abdominal and pelvic exam is not performed Results Result Diagrams: 03/14/23 20:10 03/13/23 08:43 Abnormal Lab Results - Last 24 Hours (Table) 03/13/23 03/14/23 03/14/23 Range/Units 08:57 09:11 20:10 RBC 2.63 L 3.33 L (3.80-5.40) m/uL Hgb 6.4 L* D 8.5 L D (11.4-16.0) gm/dL Hct 21.1 L 27.3 L (34.0-46.0) % MCH 24.2 L (25.0-35.0) pg MCHC 30.1 L (31.0-37.0) g/dL RDW 21.4 H 20.7 H (11.5-15.5) % Crossmatch See Detail Assessment and Plan (1) Anemia Current Visit: Yes Status: Acute Code(s): D64.9 - ANEMIA, UNSPECIFIED SNOMED Code(s): 689200067 (2) Uterine fibroid Current Visit: Yes Status: Acute Code(s): D25.9 - LEIOMYOMA OF UTERUS, UNSPECIFIED SNOMED Code(s): 74238561 (3) History of bariatric surgery Current Visit: No Status: Acute Code(s): Z98.84 - BARIATRIC SURGERY STATUS SNOMED Code(s): 415688887 (4) Iron deficiency anemia Current Visit: No Status: Acute Code(s): D50.9 - IRON DEFICIENCY ANEMIA, UNSPECIFIED SNOMED Code(s): 74896287 Plan: Patient was advised that she does have several fibroids. Since her periods are no different than she has always experienced and not extremely heavy or irregular, I do not feel that her periods are necessarily the cause of her significant anemia. Based on how she presented, she has likely had severe chronic anemia for quite some time and it is likely iron deficiency anemia due to her gastric bypass surgery. Consultation with hematology may be helpful for regular monitoring of her anemia and possible iron infusions. At this time, I do not feel that there is any gynecologic intervention needed. I have recommended that she eventually either see her primary care physician or bench technician for an annual exam and Pap smear. Her uterine fibroids can be observed for now. If her menses do become very heavy or extremely long, i ntervention may be necessary at that time. She is not a candidate for oral contraceptives due to her smoking history. Thank you very much for this consultation. Please do not hesitate to contact me if you have any further questions.
[2023-03-15] MEDS: NICOTINE 21MG/24HR PATCH TRANSDERM SCH (08:06)
[2023-03-15] MEDS: POTASSIUM CHLORIDE ER 10 MEQ TAB.ER.PRT PO SCH (08:06)
[2023-03-15] MEDS: PANTOPRAZOLE 40 MG/10 ML VIAL IV SCH (08:06)
[2023-03-15] MEDS: MELOXICAM 7.5 MG TAB PO SCH (08:07)
--- NOTE | 2023-03-15 08:24 | P.PN ---
Subjective Principal diagnosis: Anemia The patient is here essentially because of anemia with history of dysfunctional uterine bleeding. Appreciate gynecologic input at this time, they feel it is more related to her gastric bypass and iron absorption. Will consult oncology for appropriate evaluation for iron infusion. I have started p.o. iron but the patient states that she has difficulty tolerating this. Objective - Vital Signs Vital signs: Vital Signs Temp 97.5 F L 03/15/23 07:58 Pulse 76 03/15/23 07:58 Resp 16 03/15/23 07:58 BP 157/89 03/15/23 07:58 Pulse Ox 99 03/15/23 07:58 FiO2 Intake & Output 03/14/23 03/15/23 03/15/23 18:59 06:59 18:59 Intake Total 310 540 10 Balance 310 540 10 Weight 64.9 kg Intake: IV 10 Invasive Line 1 10 Oral 0 540 Blood Product 310 Rc As-1 Unit 310 [id number] Other: Voiding Method Toilet Toilet # Voids 4 2 - Constitutional General appearance: Present: average body habitus - EENT Eyes: Absent: abnormal pupil - Neck Neck: Absent: lymphadenopathy - Respiratory Respiratory: bilateral: diminished - Cardiovascular Rhythm: regular Heart sounds: normal: S1, S2 Abnormal Heart Sounds: Absent: S3 Gallop - Gastrointestinal General gastrointestinal: Present: soft. Absent: tenderness - Labs CBC & Chem 7: 03/14/23 20:10 03/13/23 08:43 Labs: Abnormal Lab Results - Last 24 Hours (Table) 03/13/23 03/14/23 03/14/23 Range/Units 08:57 09:11 20:10 RBC 2.63 L 3.33 L (3.80-5.40) m/uL Hgb 6.4 L* D 8.5 L D (11.4-16.0) gm/dL Hct 21.1 L 27.3 L (34.0-46.0) % MCH 24.2 L (25.0-35.0) pg MCHC 30.1 L (31.0-37.0) g/dL RDW 21.4 H 20.7 H (11.5-15.5) % Crossmatch See Detail Assessment and Plan (1) Anemia Current Visit: Yes Status: Acute Code(s): D64.9 - ANEMIA, UNSPECIFIED SNOMED Code(s): 444922441 (2) Current smoker Current Visit: Yes Status: Acute Code(s): F17.200 - NICOTINE DEPENDENCE, UNSPECIFIED, UNCOMPLICATED SNOMED Code(s): 60977516 (3) Uterine fibroid Current Visit: Yes Status: Acute Code(s): D25.9 - LEIOMYOMA OF UTERUS, UNSPECIFIED SNOMED Code(s): 89715591 (4) History of bariatric surgery Current Visit: No Status: Acute Code(s): Z98.84 - BARIATRIC SURGERY STATUS SNOMED Code(s): 630938645 (5) Iron deficiency anemia Current Visit: No Status: Acute Code(s): D50.9 - IRON DEFICIENCY ANEMIA, UNSPECIFIED SNOMED Code(s): 96892569 (6) Symptomatic anemia Current Visit: No Status: Acute Code(s): D64.9 - ANEMIA, UNSPECIFIED SNOMED Code(s): 875626024 Plan: Appreciate hematology input. Check CBC in the a.m. Smoking cessation again discussed with the patient. Appreciate gynecologic input. Hopefully if she goes through menopause she will not need fibroid removal. Will continue to follow closely. Anticipate discharge in the next 24 hours if CBC stable
[2023-03-15 08:51] LABS: Anisocytosis Moderate; HCT 25.6 % (34.0-46.0); HGB 7.9 gm/dL (11.4-16.0); Hypochromasia Marked; MCH 25.3 pg (25.0-35.0); MCHC 30.7 g/dL (31.0-37.0); MCV 82.7 fL (80.0-100.0); Mean Platelet Volume 9.3; Microcytosis Slight; Platelet Count 252 k/uL (150-450); Poikilocytosis Marked; RDW 21.2 % (11.5-15.5); WBC 4.9 k/uL (3.8-10.6)
[2023-03-15 09:02] LABS: ALT 12 U/L (4-34); AST 39 U/L (14-36); African American GFR (CKD) >90 (>60 ml/min/1.73 sqM); Albumin 3.4 g/dL (3.5-5.0); Alkaline Phosphatase 86 U/L (38-126); Anion Gap 8 mmol/L; Blood Urea Nitrogen 7 mg/dL (7-17); Carbon Dioxide 22 mmol/L (22-30); Chloride 109 mmol/L (98-107); Glucose 80 mg/dL (74-99); Non-African American GFR(CKD) >90 (>60 ml/min/1.73 sqM); Potassium 3.9 mmol/L (3.5-5.1); Sodium 139 mmol/L (137-145); Total Protein 6.5 g/dL (6.3-8.2)
[2023-03-15] MEDS: BUMETANIDE 1 MG TAB PO SCH (09:34)
[2023-03-15] MEDS: HYDROcodone/APAP 7.5-325MG 1 EACH TAB PO PRN ×3 (11:38→23:23)
[2023-03-15] MEDS: SODIUM FERRIC GLUCONAT-SUCROSE 125 MG in SODIUM CHLORIDE 0.9% 100 ML IVPB SCH (15:10)
[2023-03-15 15:36] VITALS: RESP 16
[2023-03-15 15:38] LABS: Anisocytosis Moderate; HCT 28.6 % (34.0-46.0); HGB 8.6 gm/dL (11.4-16.0); Hypochromasia Marked; MCH 24.9 pg (25.0-35.0); MCHC 30.2 g/dL (31.0-37.0); MCV 82.7 fL (80.0-100.0); Mean Platelet Volume 9.9; Microcytosis Slight; Platelet Count 272 k/uL (150-450); Poikilocytosis Marked; RBC 3.46 m/uL (3.80-5.40); RDW 21.3 % (11.5-15.5); WBC 4.7 k/uL (3.8-10.6)
[2023-03-15 16:56] LABS: % Iron Saturation 2.54 (12.00-45.00); Ferritin 8.4 ng/mL (10.0-291.0)
[2023-03-15] MEDS: FERROUS SULFATE 325 MG TAB PO SCH (17:32)
[2023-03-16] MEDS: HYDROcodone/APAP 7.5-325MG 1 EACH TAB PO PRN ×2 (05:25→15:35)
[2023-03-16] MEDS: FERROUS SULFATE 325 MG TAB PO SCH (06:14)
[2023-03-16] MEDS: NICOTINE 21MG/24HR PATCH TRANSDERM SCH (08:22)
[2023-03-16] MEDS: PANTOPRAZOLE 40 MG/10 ML VIAL IV SCH (08:22)
[2023-03-16] MEDS: POTASSIUM CHLORIDE ER 10 MEQ TAB.ER.PRT PO SCH (08:22)
[2023-03-16] MEDS: MELOXICAM 7.5 MG TAB PO SCH (08:22)
[2023-03-16] MEDS: SODIUM FERRIC GLUCONAT-SUCROSE 125 MG in SODIUM CHLORIDE 0.9% 100 ML IVPB SCH (08:23)
[2023-03-16 08:49] VITALS: TEMP 97.7
[2023-03-16] MEDS: BUMETANIDE 1 MG TAB PO SCH (09:27)
--- NOTE | 2023-03-16 10:13 | P.CONS ---
History of Present Illness - Reason for Consult Consult date: 03/15/23 anemia Requesting physician: Ziggy Okeefe - Chief Complaint low hemoglobin - History of Present Illness Patient is a 48-year-old female with a significant history of anemia and gastric bypass. Consult was placed for evaluation of anemia. Patient was following up with PCP for routine bloodwork and was found to be severely anemic with hgb of 3.3 and was instructed to go to the ER for further evaluation. Upon presentation CBC revealed microcytic hypochromic anemia with hemoglobin of 3.9, MCV 76.1. WBC 4.3, platelets 351,000. 3 units PRBCs have been ordered. Stool occult pending. Denies blood in stool and melena. She states she has been fatigued but this has been ongoing for some time, otherwise no other complaints. Denies SOB, dizziness, palpitations and weakness. Patient does report history of gastric bypass in 2010 and did have to receive blood and iron transfusions approximately 6 years ago and was also scoped at that time which was negative for acute bleed. She does not take any iron supplementation, and states she has never been worked up by hematology previously. Patient also reports menorrhagia and her menstruation cycle ended 4 days ago, prior to CBC with PCP. Transvaginal ultrasound obtained, revealing bulky fibroid uterus measuring up to 4.1 cm. Small amount of cul-de-sac free fluid. Endometrial stripe thickness at 6.3 mm. CASH POSTER has been consulted. Review of Systems 10 point ROS is negative except as stated in the HPI Past Medical History Past Medical History: Hyperlipidemia Additional Past Medical History / Comment(s): Back pain, ULCERS, KIDNEY STONE, ARTHRITIS History of Any Multi-Drug Resistant Organisms: None Reported Past Surgical History: Bariatric Surgery, Cholecystectomy, Tonsillectomy Additional Past Surgical History / Comment(s): Lap band in 2008, gastric bypass 10/15/10, EGD Past Anesthesia/Blood Transfusion Reactions: No Reported Reaction Past Psychological History: Depression Additional Psychological History / Comment(s): Years ago Smoking Status: Current some day smoker Past Alcohol Use History: None Reported Additional Past Alcohol Use History / Comment(s): STARTED SMOKING - ,QUIT 2008. 1 CARTON WOULD LAST A MONTH. She states she is currently still smoking but 1 carton will last about a month to month and a half. Past Drug Use History: None Reported - Past Family History Father Family Medical History: Dementia, Rheumatoid Arthritis (RA) Mother Family Medical History: Rheumatoid Arthritis (RA) Medications and Allergies Home Medications Medication Instructions Recorded Confirmed Type Omeprazole [PriLOSEC] 40 mg PO DAILY #30 cap 10/10/20 03/13/23 Rx Bumetanide [Bumex] 1 mg PO DAILY 03/13/23 03/13/23 History HYDROcodone/APAP 7.5-325MG [[place] 1 tab PO Q6HR PRN 03/13/23 03/13/23 History 7.5-325] Meloxicam [Mobic] 15 mg PO DAILY 03/13/23 03/13/23 History Potassium Chloride ER [K-Dur 10] 10 meq PO DAILY 03/13/23 03/13/23 History Allergies Allergy/AdvReac Type Severity Reaction Status Date / Time No Known Allergies Allergy Verified 03/13/23 11:04 Physical Exam Vitals: Vital Signs Temp Pulse Pulse Resp BP BP Pulse Ox 03/15/23 11:33 98.3 F 62 18 160/92 99 03/15/23 07:58 97.5 F L 76 16 157/89 99 03/15/23 04:12 62 18 168/83 99 03/14/23 23:07 62 18 135/71 100 03/14/23 20:33 64 18 161/85 99 03/14/23 15:48 98.4 F 64 15 157/84 99 03/14/23 12:49 98.1 F 59 L 18 149/73 100 Intake and Output 03/14/23 03/15/23 03/15/23 22:59 06:59 14:59 Intake Total 310 540 10 Balance 310 540 10 Intake: IV 10 Invasive Line 1 10 Oral 0 540 0 Blood Product 310 Rc As-1 Unit 310 [id number] Other: Voiding Method Toilet Toilet Toilet # Voids 4 2 3 - Constitutional General appearance: average body habitus, no acute distress - EENT Eyes: anicteric sclerae, EOMI ENT: hearing grossly normal - Respiratory Respiratory: bilateral: CTA - Cardiovascular Rhythm: regular Heart sounds: normal: S1, S2 - Gastrointestinal General gastrointestinal: soft, no tenderness - Integumentary Integumentary: no cyanotic, pale - Neurologic Neurologic: CNII-XII intact - Musculoskeletal Musculoskeletal: strength equal bilaterally - Psychiatric Psychiatric: A&O x's 3 Results CBC & Chem 7: 03/15/23 15:16 03/15/23 08:02 Labs: Abnormal Lab Results - Last 24 Hours (Table) 03/13/23 03/14/23 03/15/23 Range/Units 08:57 20:10 08:02 RBC 3.33 L 3.10 L (3.80-5.40) m/uL Hgb 8.5 L D 7.9 L (11.4-16.0) gm/dL Hct 27.3 L 25.6 L (34.0-46.0) % MCHC 30.7 L (31.0-37.0) g/dL RDW 20.7 H 21.2 H (11.5-15.5) % Chloride (98-107) mmol/L Creatinine (0.52-1.04) mg/dL AST (14-36) U/L Albumin (3.5-5.0) g/dL Crossmatch See Detail 03/15/23 Range/Units 08:02 RBC (3.80-5.40) m/uL Hgb (11.4-16.0) gm/dL Hct (34.0-46.0) % MCHC (31.0-37.0) g/dL RDW (11.5-15.5) % Chloride 109 H (98-107) mmol/L Creatinine 0.48 L (0.52-1.04) mg/dL AST 39 H (14-36) U/L Albumin 3.4 L (3.5-5.0) g/dL Crossmatch Comments: transvaginal US reviewed Assessment and Plan (1) Anemia Current Visit: Yes Status: Acute Priority: High Code(s): D64.9 - ANEMIA, UNSPECIFIED SNOMED Code(s): 644710939 (2) Uterine fibroid Current Visit: Yes Status: Acute Priority: Medium Code(s): D25.9 - LEIOMYOMA OF UTERUS, UNSPECIFIED SNOMED Code(s): 35656108 (3) History of bariatric surgery Current Visit: No Status: Acute Code(s): Z98.84 - BARIATRIC SURGERY STATUS SNOMED Code(s): 550394278 Plan: Microcytic anemia: -Significant history of anemia, gastric bypass and menorrhagia. Patient was following up with PCP for routine bloodwork and was found to be severely anemic with hgb of 3.3 and was instructed to go to the ER for further evaluation. Of n sarah, she has not had routine followup and states its been cpl years since blood work has been done. Reports having to receive blood and iron transfusions approx 6 years ago. Had endoscopic evaluation at that time which was negative for acute bleeding -Upon presentation CBC revealed microcytic hypochromic anemia with hemoglobin of 3.9, MCV 76.1. Platelets 351,000. 3 units PRBCs have been given. Hgb 8.5 s/p infusions -Stool occult pending. Denies blood in stool and melena. -Transvaginal ultrasound revealed bulky fibroid uterus measuring up to 4.1 cm. Small amount of cul-de-sac free fluid. Endometrial stripe thickness at 6.3 mm. CASH POSTER has been consulted -Anemia likely secondary to acute blood loss r/t menorrhagia and poor iron absorption due to history of gastric bypass. Recommend outpt f/u with CASH POSTER -Anemia workup ordered. Parenteral iron started -Will continue to monitor. Please transfuse for hgb < 7 or if symptomatic -Clinic f/u in 4 weeks to recheck iron studies Attests: I have seen and examined pt, performed H&P, developed impression and plan of care. Discussed with dictator. Agree with documentation, dictated as a scribe.
[2023-03-16 10:18] LABS: Anisocytosis Moderate; HCT 27.2 % (34.0-46.0); HGB 8.1 gm/dL (11.4-16.0); Hypochromasia Marked; MCH 25.4 pg (25.0-35.0); MCHC 29.9 g/dL (31.0-37.0); MCV 84.9 fL (80.0-100.0); Mean Platelet Volume 9.6; Microcytosis Slight; Platelet Count 235 k/uL (150-450); Poikilocytosis Marked; RDW 21.9 % (11.5-15.5); WBC 4.6 k/uL (3.8-10.6)
[2023-03-16 16:51] VITALS: BP 156/75; PULSE 60
[2023-03-19 06:40] LABS: Methylmalonic Acid 0.29 umol/L (<0.40)
== END 2023-03-16 17:00 | disposition home or self-care (01) | DRG 812 ==
LOC: EC 08:25 → 3SCARD 10:10
PROVIDERS: ADMIT Family Medicine; ATTEND Family Medicine
PROC: 30233N1 Transfusion of Nonautologous Red Blood Cells into Peripheral Vein, Percutaneous Approach (ICD-10-PCS; principal; 2023-03-13)
DX: D50.9 Iron deficiency anemia, unspecified (principal); E78.5 Hyperlipidemia, unspecified; F17.200 Nicotine dependence, unspecified, uncomplicated; D25.9 Leiomyoma of uterus, unspecified; F32.A Depression, unspecified; M19.90 Unspecified osteoarthritis, unspecified site; N92.0 Excessive and frequent menstruation with regular cycle; Z98.84 Bariatric surgery status; Z87.442 Personal history of urinary calculi; Z79.899 Other long term (current) drug therapy; Z79.1 Long term (current) use of non-steroidal anti-inflammatories (NSAID)
CPT/HCPCS: 36415; 36430; 76830; 80053; 82525; 82607; 82728; 82747; 83540; 83550; 83735; 83921; 85025; 85027; 85610; 85730; 86850; 86900; 86901; 86920; 96374; 99291

== ENCOUNTER 2024-07-17 15:21 | Observation (INO) | payer OTHER ==
--- NOTE | 2024-07-17 16:14 | XR ---
EXAMINATION TYPE: XR chest 2V DATE OF EXAM: 07/17/2024 4:10 PM COMPARISON: None. CLINICAL INDICATION: Female, 49 years old with history of Chest Pain, TECHNIQUE: XR chest 2V view(s) obtained. FINDINGS: The heart size is normal. The pulmonary vasculature is normal. The lungs are clear. IMPRESSION: 1. No acute pulmonary process. [facility], , 07/17/2024 4:11 PM
--- NOTE | 2024-07-17 16:35 | ED ---
Chest Pain HPI - General Chief Complaint: Chest Pain Stated Complaint: Chest pain,Weakness Time Seen by Provider: 07/17/24 16:31 Source: patient, RN notes reviewed Mode of arrival: ambulatory Limitations: no limitations - History of Present Illness Initial Comments: 49-year-old female presenting for left-sided chest pain x 3 hours. Reports a sharp, improving pain in the left side of her chest. States over the past week she has felt like she came down with a cold and has been very fatigued, sleeping often. Reports last night she woke up at 1 AM to use the restroom and was very dizzy when she stood up and thought maybe she had a fever. States she was taking a nap this afternoon and woke up with sharp left-sided chest pain. Denies shortness of breath, abdominal pain. States she is unsure if the chest pain is due to stress. Denies nasal congestion, cough. She is a active smoker. Denies significant cardiac or pulmonary history. Denies blood thinners. - Related Data Home Medications Medication Instructions Recorded Confirmed Bumetanide [BUMEX] 1 mg PO DAILY 03/13/23 07/17/24 Meloxicam [Mobic] 15 mg PO DAILY 03/13/23 07/17/24 Dm/Acetaminophen/Doxylamine [Vicks 30 ml PO HS 07/17/24 07/17/24 Nyquil Cold-Flu Liquid] Nicotine 21Mg/24Hr Patch [Habitrol] 1 patch TRANSDERM DAILY 07/17/24 07/17/24 Rosuvastatin [Crestor] 10 mg PO DAILY 07/17/24 07/17/24 oxyCODONE HCL/ACETAMINOPHEN 1 tab PO QID 07/17/24 07/17/24 [Percocet 10-325 mg] Previous Rx's Medication Instructions Recorded Omeprazole [PriLOSEC] 40 mg PO DAILY #30 cap 10/10/20 Allergies Allergy/AdvReac Type Severity Reaction Status Date / Time No Known Allergies Allergy Verified 07/17/24 15:32 Review of Systems ROS Statement: Those systems with pertinent positive or pertinent negative responses have been documented in the HPI. ROS Other: All systems not noted in ROS Statement are negative. EKG Findings - EKG Results: EKG: interpreted by [facility] (EKG reveals sinus rhythm with left atrial enlargement, prolonged QT interval, and inverted T waves in lead III. Ventricular rate 67 bpm, WV interval 157, QRS duration 86, QT/QTc 470/485) Past Medical History Past Medical History: Hyperlipidemia Additional Past Medical History / Comment(s): Back pain, ULCERS, KIDNEY STONE, ARTHRITIS History of Any Multi-Drug Resistant Organisms: None Reported Past Surgical History: Bariatric Surgery, Cholecystectomy, Tonsillectomy Additional Past Surgical History / Comment(s): Lap band in 2008, gastric bypass 10/15/10, EGD Past Anesthesia/Blood Transfusion Reactions: No Reported Reaction Past Psychological History: Depression Smoking Status: Current every day smoker Past Alcohol Use History: None Reported Past Drug Use History: None Reported - Past Family History Father Family Medical History: Dementia, Rheumatoid Arthritis (RA) Mother Family Medical History: Rheumatoid Arthritis (RA) General Exam Limitations: no limitations General appearance: alert, in no apparent distress Head exam: Present: atraumatic, normocephalic, normal inspection Eye exam: Present: normal appearance, PERRL, EOMI. Absent: scleral icterus, conjunctival injection, periorbital swelling ENT exam: Present: normal exam, mucous membranes moist Neck exam: Present: normal inspection. Absent: tenderness, meningismus, lymphadenopathy Respiratory exam: Present: normal lung sounds bilaterally. Absent: respiratory distress, wheezes, rales, rhonchi, stridor Cardiovascular Exam: Present: regular rate, normal rhythm, normal heart sounds. Absent: systolic murmur, diastolic murmur, rubs, gallop, clicks GI/Abdominal exam: Present: soft, normal bowel sounds. Absent: distended, tenderness, guarding, rebound, rigid Neurological exam: Present: alert, oriented X3 Psychiatric exam: Present: normal affect, normal mood Skin exam: Present: warm, dry, intact, normal color. Absent: rash Course Vital Signs 07/17/24 07/17/24 07/17/24 15:28 16:45 17:08 Temperature 98.0 F 99.5 F Pulse Rate 64 56 L 61 Respiratory 18 18 20 Rate Blood Pressure 98/64 122/73 136/76 O2 Sat by Pulse 99 97 99 Oximetry Chest Pain MDM - MDM Was pt. sent in by a medical professional or institution (, PA, TILT TRAY DRIVER, urgent care, hospital, or custodial...) When possible be specific @ -No Did you speak to anyone other than the patient for history (EMS, parent, family, police, friend...)? What history was obtained from this source @ -No Did you review nursing and triage notes (agree or disagree)? Why? @ -I reviewed and agree with nursing and triage notes Were old charts reviewed (outside hosp., previous admission, EMS record, old EKG, old radiological studies, urgent care reports/EKG's, custodial records)? Report findings @ -Reviewed EKG from 2020 which revealed normal sinus rhythm with no acute ST changes Differential Diagnosis (chest pain, altered mental status, abdominal pain women, abdominal pain men, vaginal bleeding, weakness, fever, dyspnea, syncope, headache, dizziness, GI bleed, back pain, seizure, CVA, palpatations, mental health, musculoskeletal)? @ -Differential Chest Pain: Stable Angina, Unstable Angina, STEMI, NSTEMI Aortic Dissection, Pneumothorax, Musculoskeletal, Esophageal Spasm GERD, Cholecystitis, Pancreatitis, Zoster, this is not meant to be an all-inclusive list. EKG interpreted by me (3pts min.). @ -As above X-rays interpreted by me (1pt min.). @ -Chest x-ray reveals no acute cardiopulmonary process CT interpreted by me (1pt min.). @ -None done U/S interpreted by me (1pt. min.). @ -None done What testing was considered but not performed or refused? (CT, X-rays, U/S, labs)? Why? @ -None What meds were considered but not given or refused? Why? @ -None Did you discuss the management of the patient with other professionals (professionals i.e. , PA, TILT TRAY DRIVER, lab, RT, psych nurse, social services technician, pan washer hand, teacher, ict help desk officer, registered nurse hh case manager)? Give summary @ -I spoke with Dr. Madison who accepts admission for chest pain with consultation to cardiology Was smoking cessation discussed for >3mins.? @ -No Was critical care preformed (if so, how long)? @ -No Were there social determinants of health that impacted care today? How? (Homelessness, low income, unemployed, alcoholism, drug addiction, transportation, low edu. Level, literacy, decrease access to med. care, detention, rehab)? @ -No Was there de-escalation of care discussed even if they declined (Discuss DNR or withdrawal of care, Hospice)? DNR status @ -No What co-morbidities impacted this encounter? (DM, HTN, Smoking, COPD, CAD, Cancer, CVA, ARF, Chemo, Hep., AIDS, mental health diagnosis, sleep apnea, morbid obesity)? @ -None Was patient admitted / discharged? Hospital course, mention meds given and route, prescriptions, significant lab abnormalities, going to OR and other pertinent info. @ - admitted. 49-year-old female presenting for left-sided chest pain x 3 hours with associated dizziness and fatigue. Vital signs are within acceptable limits. Patient is well-appearing, no acute distress. EKG reveals mild QT prolongation and minimal ST depression in inferior leads changed from previous EKG in 2020. Lab work remarkable for hemoglobin of 10 however this is chronic in nature and overall improved from baseline. Troponin undetectable, negative D-dimer. Chest x-ray reveals no acute cardiopulmonary process. Due to symptoms and EKG changes, we will admit to medicine with cardiology consultation. Case was discussed with my ED attending Dr. Bruno. Undiagnosed new problem with uncertain prognosis? @ -No Drug Therapy requiring intensive monitoring for toxicity (Heparin, Nitro, Insulin, Cardizem)? @ -No Were any procedures done? @ -No Diagnosis/symptom? @ -Chest pain Acute, or Chronic, or Acute on Chronic? @ -Acute Uncomplicated (without systemic symptoms) or Complicated (systemic symptoms)? @ -Complicated Side effects of treatment? @ -No Exacerbation, Progression, or Severe Exacerbation? @ -No Poses a threat to life or bodily function? How? (Chest pain, [place], [place], pneumonia, PE, COPD, DKA, ARF, appy, cholecystitis, CVA, Diverticulitis, Homicidal, Suicidal, threat to staff... and all critical care pts) @ -Yes, chest pain Disposition Clinical Impression: Chest pain Disposition: ADMITTED IP TO THIS HOSP Referrals: Ziggy Okeefe MD [Primary Care Provider] - 1-2 days Time of Disposition: 18:18
[2024-07-17 16:38] LABS: Basophils # (A) 0.02 10*3/uL (0.00-0.10); Basophils % (A) 0.2 %; HCT 34.6 % (37.2-46.3); Lymphocytes % (A) 16.4 %; MCH 20.8 pg (27.0-32.0); MCHC 28.9 g/dL (32.0-37.0); MCV 72.1 fL (80.0-97.0); Mean Platelet Volume 10.7 fL (9.5-12.2); Monocytes # (A) 0.37 10*3/uL (0.20-1.00); Monocytes % (A) 4.3 %; Neutrophils # (A) 6.69 10*3/uL (1.80-7.70); Neutrophils % (A) 78.6 %; Platelet Count 363 10*3/uL (140-440); RDW 19.9 % (11.5-14.5); WBC 8.52 10*3/uL (4.50-10.00)
[2024-07-17] MEDS: SODIUM CHLORIDE 0.9% 1,000 ML IV STA (16:48)
[2024-07-17 16:51] LABS: Carbon Dioxide 19 mmol/L (22-30); Chloride 105 mmol/L (98-107); Glucose 108 mg/dL (74-99); Potassium 3.3 mmol/L (3.5-5.1); Sodium 139 mmol/L (137-145)
[2024-07-17] MEDS: KETOROLAC 15 MG/ML 1 ML VIAL IVP STA (16:51)
[2024-07-17 16:52] LABS: ALT 15 U/L (4-34); AST 40 U/L (14-36); African American GFR (CKD) >90 (>60 ml/min/1.73 sqM); Albumin 4.5 g/dL (3.5-5.0); Alkaline Phosphatase 106 U/L (38-126); Anion Gap 15 mmol/L; Blood Urea Nitrogen 10 mg/dL (7-17); Calcium 10.2 mg/dL (8.4-10.2); INR 0.9 (<1.2); Magnesium 2.3 mg/dL (1.6-2.3); Non-African American GFR(CKD) >90 (>60 ml/min/1.73 sqM); Partial Thromboplastin Time 22.1 sec (22.0-30.0); Prothrombin Time 10.4 sec (10.0-12.5); Total Bilirubin 0.5 mg/dL (0.2-1.3)
[2024-07-17 17:29] LABS: Influenza A Not Detected (Not Detectd); Influenza B Not Detected (Not Detectd); RSV Not Detected (Not Detectd)
[2024-07-17] MEDS ORDERED: MORPHINE SULFATE 4 MG/ML SYRINGE IV PRN (18:14)
[2024-07-17] MEDS ORDERED: NALOXONE 0.4 MG/ML 1 ML VIAL IV PRN (18:14)
[2024-07-17] MEDS ORDERED: ACETAMINOPHEN TAB 325 MG TAB PO PRN (18:14)
[2024-07-17] MEDS: oxyCODONE-APAP 5-325MG 1 EACH TAB PO STA (20:52)
[2024-07-18] MEDS: KETOROLAC 15 MG/ML 1 ML VIAL IVP PRN (14:25)
--- NOTE | 2024-07-18 15:25 | P.CRDCN ---
History of Present Illness Consult date: 07/18/24 History of present illness: HISTORY OF PRESENTING ILLNESS: 49-year-old female presented to the hospital because of substernal chest pressure that started yesterday. Patient reports that she has been going through a cough and sore throat for which she took more more NyQuil than she should. This got her scared and her brought her to the hospital. Since hospital admission she feels better and has not had any chest pain. Admission ECG shows sinus rhythm with no clear evidence of ischemia on resting ECG Blood pressure has been borderline elevated with SBP around 130s to 160s. Telemetry shows sinus rhythm Labs were essentially within normal limits troponins were negative Chest x-ray did not show any signs of pulmonary congestion mediastinal banding REVIEW OF SYSTEMS: 14 point review of system is negative except what is mentioned above in HPI. PHYSICAL EXAMINATION: Neck: Brisk carotid upstroke, no jugular venous distention. Lungs: Clear to auscultation. Heart: Regular rate and rhythm, S1-S2, , no murmur or rub. Abdomen: Soft nontender, positive bowel sounds. Extremities: No edema, intact distal pulses. Neuro: Alert, oritented, no focal deficits. Detailed neuro exam was not performed. ASSESSMENT: # Atypical chest pain, rule out of ACS # Borderline high blood pressure # Tobacco smoking 1 pack/day. Currently trying to quit # Obesity PLAN: Patient is cleared to be discharged from cardiac standpoint Start losartan 25 mg daily. Continue rosuvastatin milligrams daily. Discontinue Bumex Follow-up outpatient with Dr. Dunlap for echo and a stress test Santiago Dunlap MD, FACC, RPVI Thank you for allowing [facility] to participate in this patient's care. Feel free to reach out in case of any followup questions. Past Medical History Past Medical History: Hyperlipidemia Additional Past Medical History / Comment(s): Back pain, ULCERS, KIDNEY STONE, ARTHRITIS History of Any Multi-Drug Resistant Organisms: None Reported Past Surgical History: Bariatric Surgery, Cholecystectomy, Tonsillectomy Additional Past Surgical History / Comment(s): Lap band in 2008, gastric bypass 10/15/10, EGD Past Anesthesia/Blood Transfusion Reactions: No Reported Reaction Past Psychological History: Depression Smoking Status: Current every day smoker Past Alcohol Use History: None Reported Past Drug Use History: None Reported - Past Family History Father Family Medical History: Dementia, Rheumatoid Arthritis (RA) Mother Family Medical History: Rheumatoid Arthritis (RA) Medications and Allergies Home Medications Medication Instructions Recorded Confirmed Type Omeprazole [PriLOSEC] 40 mg PO DAILY #30 cap 10/10/20 07/17/24 Rx Meloxicam [Mobic] 15 mg PO DAILY 03/13/23 07/17/24 History Dm/Acetaminophen/Doxylamine [Vicks 30 ml PO HS 07/17/24 07/17/24 History Nyquil Cold-Flu Liquid] Nicotine 21Mg/24Hr Patch [Habitrol] 1 patch TRANSDERM DAILY 07/17/24 07/17/24 History Rosuvastatin [Crestor] 10 mg PO DAILY 07/17/24 07/17/24 History oxyCODONE HCL/ACETAMINOPHEN 1 tab PO QID 07/17/24 07/17/24 History [Percocet 10-325 mg] Losartan [Cozaar] 25 mg PO DAILY 30 Days #30 tab 07/18/24 Rx Allergies Allergy/AdvReac Type Severity Reaction Status Date / Time No Known Allergies Allergy Verified 07/17/24 15:32 Physical Exam Vitals: Vital Signs Temp Pulse Pulse Resp BP BP Pulse Ox 07/18/24 15:04 98.7 F 92 17 163/97 100 07/18/24 14:58 99 07/18/24 14:15 94 16 142/62 99 07/18/24 13:00 83 16 150/85 100 07/18/24 11:44 90 18 135/99 99 07/18/24 10:02 90 16 110/71 99 07/18/24 09:25 98 16 103/51 100 07/18/24 07:31 91 16 151/90 100 07/18/24 06:00 98.5 F 85 18 157/100 100 07/18/24 04:00 98.6 F 92 18 144/82 98 07/18/24 01:44 90 18 149/77 98 07/17/24 23:01 98.7 F 77 19 151/75 100 07/17/24 19:02 99.4 F 66 16 140/78 97 07/17/24 17:08 61 20 136/76 99 07/17/24 16:45 99.5 F 56 L 18 122/73 97 07/17/24 15:28 98.0 F 64 18 98/64 99 FiO2 07/18/24 15:04 07/18/24 14:58 21 07/18/24 14:15 07/18/24 13:00 07/18/24 11:44 07/18/24 10:02 07/18/24 09:25 07/18/24 07:31 07/18/24 06:00 07/18/24 04:00 07/18/24 01:44 07/17/24 23:01 07/17/24 19:02 07/17/24 17:08 07/17/24 16:45 07/17/24 15:28 Results 07/17/24 16:21 07/17/24 16:21 Cardiac Enzymes 07/17/24 07/17/24 07/17/24 Range/Units 16:21 16:21 19:06 AST 40 H (14-36) U/L Troponin I <0.012 <0.012 (0.000-0.034) ng/mL 07/17/24 Range/Units 23:24 AST (14-36) U/L Troponin I <0.012 (0.000-0.034) ng/mL Coagulation 07/17/24 Range/Units 16:21 PT 10.4 (10.0-12.5) sec APTT 22.1 (22.0-30.0) sec CBC 07/17/24 Range/Units 16:21 WBC 8.52 (4.50-10.00) 10*3/uL RBC 4.80 (4.10-5.20) 10*6/uL Hgb 10.0 L (12.0-15.0) g/dL Hct 34.6 L (37.2-46.3) % Plt Count 363 (140-440) 10*3/uL Comprehensive Metabolic Panel 07/17/24 Range/Units 16:21 Sodium 139 (137-145) mmol/L Potassium 3.3 L (3.5-5.1) mmol/L Chloride 105 (98-107) mmol/L Carbon Dioxide 19 L (22-30) mmol/L BUN 10 (7-17) mg/dL Creatinine 0.75 (0.52-1.04) mg/dL Glucose 108 H (74-99) mg/dL Calcium 10.2 (8.4-10.2) mg/dL AST 40 H (14-36) U/L ALT 15 (4-34) U/L Alkaline Phosphatase 106 (38-126) U/L Total Protein 8.0 (6.3-8.2) g/dL Albumin 4.5 (3.5-5.0) g/dL Current Medications Generic Name Dose Route Start Last Admin Trade Name Freq PRN Reason Stop Dose Admin Acetaminophen 650 mg 07/17/24 18:14 Acetaminophen Tab 325 Mg Tab PO Q6HR PRN Mild Pain or Fever > 100.5 Ketorolac Tromethamine 15 mg 07/17/24 18:14 07/18/24 14:25 Ketorolac 15 Mg/Ml 1 Ml Vial IVP 07/20/24 18:15 15 mg Q6HR PRN Administration Moderate Pain (Scale 4 to 6) Losartan Potassium 25 mg 07/18/24 15:30 Losartan 25 Mg Tab PO DAILY DONATO Morphine Sulfate 4 mg 07/17/24 18:14 Morphine Sulfate 4 Mg/Ml Syringe IV Q4HR PRN Severe Pain (Scale 7 to 10) Naloxone HCl 0.2 mg 07/17/24 18:14 Naloxone 0.4 Mg/Ml 1 Ml Vial IV Q2M PRN Opioid Reversal 07/17/24 16:21 07/17/24 16:21
[2024-07-18] MEDS: LOSARTAN 25 MG TAB PO SCH (16:21)
[2024-07-18 17:21] LABS: Magnesium 2.3 mg/dL (1.6-2.3)
[2024-07-18 17:31] LABS: NT-Pro-B-Type Natriuretic Pept 1990 pg/mL
--- NOTE | 2024-07-18 20:26 | P.HPIM ---
History of Present Illness H&P Date: 07/18/24 Chief Complaint: Chest pain 49-year-old female presenting for left-sided chest pain x 3 hours. Reports a sharp, improving pain in the left side of her chest. States over the past week she has felt like she came down with a cold and has been very fatigued, sleeping often. Reports last night she woke up at 1 AM to use the restroom and was very dizzy when she stood up and thought maybe she had a fever. States she was taking a nap this afternoon and woke up with sharp left-sided chest pain. Denies shortness of breath, abdominal pain. States she is unsure if the chest pain is due to stress. Denies nasal congestion, cough. She is a active smoker. Denies significant cardiac or pulmonary history. Denies blood thinners. Blood work reveals WBC of 8.5, hemoglobin of 10 and platelet count of 363, sodium 139, potassium 3.3, BUN/creatinine of 15/0.75, AST of 40, troponin less than 0.012 Viral screen including influenza A and B, RSV and COVID-19 is negative Chest x-ray is negative for any acute pulmonary disease EKG shows normal sinus rhythm without any acute ST or T wave changes Review of Systems REVIEW OF SYSTEMS: CONSTITUTIONAL: No fever, no malaise, no fatigue. HEENT: No recent visual problems or hearing problems. Denied any sore throat. CARDIOVASCULAR: No chest pain, orthopnea, PND, no palpitations, no syncope. PULMONARY: No shortness of breath, no cough, no hemoptysis. GASTROINTESTINAL: No diarrhea, no nausea, no vomiting, no abdominal pain. NEUROLOGICAL: No headaches, no weakness, no numbness. HEMATOLOGICAL: Denies any bleeding or petechiae. GENITOURINARY: Denies any burning micturition, frequency, or urgency. MUSCULOSKELETAL/RHEUMATOLOGICAL: Denies any joint pain, swelling, or any muscle pain. ENDOCRINE: Denies any polyuria or polydipsia. The rest of the 14-point review of systems is negative. Past Medical History Past Medical History: Hyperlipidemia Additional Past Medical History / Comment(s): Back pain, ULCERS, KIDNEY STONE, ARTHRITIS History of Any Multi-Drug Resistant Organisms: None Reported Past Surgical History: Bariatric Surgery, Cholecystectomy, Tonsillectomy Additional Past Surgical History / Comment(s): Lap band in 2008, gastric bypass 10/15/10, EGD Past Anesthesia/Blood Transfusion Reactions: No Reported Reaction Past Psychological History: Depression Smoking Status: Current every day smoker Past Alcohol Use History: None Reported Past Drug Use History: None Reported - Past Family History Father Family Medical History: Dementia, Rheumatoid Arthritis (RA) Mother Family Medical History: Rheumatoid Arthritis (RA) Medications and Allergies Home Medications Medication Instructions Recorded Confirmed Type Omeprazole [PriLOSEC] 40 mg PO DAILY #30 cap 10/10/20 07/17/24 Rx Meloxicam [Mobic] 15 mg PO DAILY 03/13/23 07/17/24 History Dm/Acetaminophen/Doxylamine [Vicks 30 ml PO HS 07/17/24 07/17/24 History Nyquil Cold-Flu Liquid] Nicotine 21Mg/24Hr Patch [Habitrol] 1 patch TRANSDERM DAILY 07/17/24 07/17/24 History Rosuvastatin [Crestor] 10 mg PO DAILY 07/17/24 07/17/24 History oxyCODONE HCL/ACETAMINOPHEN 1 tab PO QID 07/17/24 07/17/24 History [Percocet 10-325 mg] Losartan [Cozaar] 25 mg PO DAILY 30 Days #30 tab 07/18/24 Rx Allergies Allergy/AdvReac Type Severity Reaction Status Date / Time No Known Allergies Allergy Verified 07/17/24 15:32 Physical Exam Vitals: Vital Signs Temp Pulse Resp BP Pulse Ox 07/18/24 13:00 83 16 150/85 100 07/18/24 11:44 90 18 135/99 99 07/18/24 10:02 90 16 110/71 99 07/18/24 09:25 98 16 103/51 100 07/18/24 07:31 91 16 151/90 100 07/18/24 06:00 98.5 F 85 18 157/100 100 07/18/24 04:00 98.6 F 92 18 144/82 98 07/18/24 01:44 90 18 149/77 98 07/17/24 23:01 98.7 F 77 19 151/75 100 07/17/24 19:02 99.4 F 66 16 140/78 97 07/17/24 17:08 61 20 136/76 99 07/17/24 16:45 99.5 F 56 L 18 122/73 97 07/17/24 15:28 98.0 F 64 18 98/64 99 Intake and Output 07/17/24 07/18/24 07/18/24 22:59 06:59 14:59 Other: Weight 72.575 kg General appearance: alert, in no apparent distress Head exam: Present: atraumatic, normocephalic, normal inspection Eye exam: Present: normal appearance, PERRL, EOMI. Absent: scleral icterus, conjunctival injection, periorbital swelling ENT exam: Present: normal exam, mucous membranes moist Neck exam: Present: normal inspection. Absent: tenderness, meningismus, lymphadenopathy Respiratory exam: Present: normal lung sounds bilaterally. Absent: respiratory distress, wheezes, rales, rhonchi, stridor Cardiovascular Exam: Present: regular rate, normal rhythm, normal heart sounds. Absent: systolic murmur, diastolic murmur, rubs, gallop, clicks GI/Abdominal exam: Present: soft, normal bowel sounds. Absent: distended, tenderness, guarding, rebound, rigid Neurological exam: Present: alert, oriented X3 Psychiatric exam: Present: normal affect, normal mood Skin exam: Present: warm, dry, intact, normal color. Absent: rash Results CBC & Chem 7: 07/17/24 16:21 07/17/24 16:21 Labs: Abnormal Lab Results - Last 24 Hours (Table) 07/17/24 07/17/24 Range/Units 16:21 16:21 Hgb 10.0 L (12.0-15.0) g/dL Hct 34.6 L (37.2-46.3) % MCV 72.1 L (80.0-97.0) fL MCH 20.8 L (27.0-32.0) pg MCHC 28.9 L (32.0-37.0) g/dL Eosinophils # 0.00 L (0.04-0.35) 10*3/uL Potassium 3.3 L (3.5-5.1) mmol/L Carbon Dioxide 19 L (22-30) mmol/L Glucose 108 H (74-99) mg/dL AST 40 H (14-36) U/L Assessment and Plan Assessment: Chest pain rule out acute coronary syndrome - Patient will be admitted to telemetry; monitor EKG and trend troponin - Recommend 2D echo - Consult cardiology Hypertension; no history; patient is not currently on any antihypertensive therapy; await recommendations from cardiology Hyperlipidemia; Crestor 10 mg daily Tobacco abuse; counseling done for smoking cessation Obesity; BMI at 30.2; patient educated DVT prophylaxis; SCDs CODE STATUS; full code
[2024-07-18] MEDS: oxyCODONE-APAP 10-325MG 1 EACH TAB PO SCH (22:18)
[2024-07-19 00:28] LABS: Chol/HDL Ratio 2.69 Ratio; LDL Cholesterol,Calculated 89.9 mg/dL (0.0-131.0); VLDL Calculation 19.34 mg/dL (5.00-40.00)
[2024-07-19 01:01] VITALS: TEMP 98.1
[2024-07-19 07:24] VITALS: BP 169/95; PULSE 92; RESP 17
--- NOTE | 2024-07-19 08:11 | P.PN ---
Subjective Progress Note Date: 07/19/24 HISTORY OF PRESENTING ILLNESS: 49-year-old female presented to the hospital because of substernal chest pr essure that started yesterday. Patient reports that she has been going through a cough and sore throat for which she took more more NyQuil than she should. This got her scared and her brought her to the hospital. Since hospital admission she feels better and has not had any chest pain. Admission ECG shows sinus rhythm with no clear evidence of ischemia on resting ECG Blood pressure has been borderline elevated with SBP around 130s to 160s. Telemetry shows sinus rhythm Labs were essentially within normal limits troponins were negative Chest x-ray did not show any signs of pulmonary congestion mediastinal banding Progress note 07/19/2024 Slightly hypertensive. SBP in 160s. Denies any chest pain chest pressure shortness of breath symptoms. PHYSICAL EXAMINATION: Neck: Brisk carotid upstroke, no jugular venous distention. Lungs: Clear to auscultation. Heart: Regular rate and rhythm, S1-S2, , no murmur or rub. Abdomen: Soft nontender, positive bowel sounds. Extremities: No edema, intact distal pulses. Neuro: Alert, oritented, no focal deficits. Detailed neuro exam was not per formed. ASSESSMENT: # Atypical chest pain, rule out of ACS # Borderline high blood pressure # Tobacco smoking 1 pack/day. Currently trying to quit # Obesity Pertinent cardiac testing A1c 5.3, NT-proBNP 1900, LDL 89, TG 96, TSH 1.7, HDL 64 PLAN: Patient is cleared to be discharged from cardiac standpoint Increase losartan to 50 mg daily. Continue rosuvastatin milligrams daily. Discontinue Bumex Monitor blood pressure log and show to me in the office Follow-up outpatient with Dr. Dunlap for echo and a stress test Objective - Vital Signs Vital signs: Vital Signs Temp 98.1 F 07/19/24 07:00 Pulse 92 07/19/24 07:00 Resp 17 07/19/24 07:00 BP 169/95 07/19/24 07:00 Pulse Ox 99 07/19/24 07:00 FiO2 21 07/18/24 14:58 Intake & Output 07/18/24 07/19/24 07/19/24 18:59 06:59 18:59 Intake Total 118 Balance 118 Weight 72.575 kg Intake: Oral 118 Other: Voiding Method Toilet Toilet # Voids 3 - Labs CBC & Chem 7: 07/17/24 16:21 07/17/24 16:21 Labs: Abnormal Lab Results - Last 24 Hours (Table) 07/18/24 Range/Units 16:44 HDL Cholesterol 64.80 H (40.00-60.00) mg/dL
[2024-07-19] MEDS: ATORVASTATIN 20 MG TAB PO SCH (08:33)
[2024-07-19] MEDS: NICOTINE 21MG/24HR PATCH TRANSDERM SCH (08:33)
[2024-07-19] MEDS: LOSARTAN 50 MG TAB PO SCH (08:34)
[2024-07-19] MEDS: PANTOPRAZOLE 40 MG TABLET PO SCH (08:35)
[2024-07-19] MEDS: MELOXICAM 7.5 MG TAB PO SCH (08:35)
== END 2024-07-19 11:06 | disposition home or self-care (01) ==
LOC: EC 15:21 → 6NMEDSUR 19:41
PROVIDERS: ADMIT Internal Medicine; ATTEND Internal Medicine
DX: R07.89 Other chest pain (principal); R03.0 Elevated blood-pressure reading, without diagnosis of hypertension; R94.31 Abnormal electrocardiogram [ECG] [EKG]; E78.5 Hyperlipidemia, unspecified; J02.9 Acute pharyngitis, unspecified; R05.9 Cough, unspecified; R42 Dizziness and giddiness; R53.83 Other fatigue; R07.2 Precordial pain; E66.9 Obesity, unspecified; Z68.30 Body mass index [BMI] 30.0-30.9, adult; F17.210 Nicotine dependence, cigarettes, uncomplicated; Z79.1 Long term (current) use of non-steroidal anti-inflammatories (NSAID); Z79.891 Long term (current) use of opiate analgesic; Z79.899 Other long term (current) drug therapy; Z11.52 Encounter for screening for COVID-19; Z11.59 Encounter for screening for other viral diseases; Z71.6 Tobacco abuse counseling
CPT/HCPCS: 96376; 96361; 96374; 99285; 36415; 94760 ×2; 93005; 85379; 83880; 80061; 80053; 84443; 83735 ×2; 84484; 85025; 85610; 85730; 83036; 87636; 71046; G0378 ×3; S4990; J1885 ×2